=== PATIENT | male | born 1975 | race Two or more races ===

== ENCOUNTER 2019-11-26 12:05 | Emergency (ER) | payer SELFPAY ==
[~2019-11-26] VITALS: Ht 175.3 cm; Wt 91.0 kg
[2019-11-26] MEDS ORDERED: ONDANSETRON PF 4 MG/2 ML VIAL. IVP ONE (12:30)
[2019-11-26] MEDS ORDERED: IV NORMAL SALINE 1000ML BAG 1,000 ML IV ONE (12:30)
[2019-11-26] MEDS ORDERED: FAMOTIDINE 20 MG/2 ML VIAL IVP ONE (12:30)
[2019-11-26 12:32] LABS: BILIRUBIN,URINE SMALL (NEG); CLARITY,URINE CLOUDY; COLOR,URINE AMBER; NITRITE,URINE NEGATIVE (NEG); PH,URINE 5.5 (<5.0-8.0); PROTEIN,URINE 100 mg/dL (NEG-TRACE)
--- NOTE | 2019-11-26 12:37 | PHYS DOC ---
General Adult EDM: Chief Complaint: ABDOMINAL PAIN HPI: HPI: Patient is a 43 year old male who presents with patient states that this morning he began having left upper abdominal pain that is stabbing and takes his breath away. He states it makes him short of breath. He rates pain 10 out of 10. States he has nausea but denies vomiting or diarrhea or fever. He denies drinking alcohol. He states he is been taking Advil for pain. States about 6 days ago he had the same pain but it resolved quickly. Review of Systems: Review of Systems: GI: LUQ abdominal pain, nausea, denies vomiting, bloody stools or diarrhea. [] Heart Score: Risk Factors: Risk Factors: DM, Current or recent (<one month) smoker, HTN, HLP, family history of CAD, obesity. Risk Scores: Score 0 - 3: 2.5% MACE over next 6 weeks - Discharge Home Score 4 - 6: 20.3% MACE over next 6 weeks - Admit for Clinical Observation Score 7 - 10: 72.7% MACE over next 6 weeks - Early Invasive Strategies Current Medications: Current Medications Medications (Trade) Dose Ordered Sig/Nataliia Start Time Stop Time Status Last Admin Dose Admin Famotidine (Pepcid Vial) 20 mg 1X ONCE 11/26/19 12:30 11/26/19 12:31 UNV Ondansetron HCl (Zofran) 4 mg 1X ONCE 11/26/19 12:30 11/26/19 12:31 UNV Sodium Chloride 1,000 ml @ 1,000 mls/hr 1X ONCE 11/26/19 12:30 11/26/19 13:29 UNV Physical Exam: PE: Constitutional: Well developed, well nourished, no acute distress, non-toxic appearance. [] HENT: Normocephalic, atraumatic, bilateral external ears normal, oropharynx moist, no oral exudates, nose normal. [] Eyes: PERRLA, EOMI, conjunctiva normal, no discharge. [] Neck: Normal range of motion, no tenderness, supple, no stridor. [] Cardiovascular:Heart rate regular rhythm, no murmur [] Lungs & Thorax: Bilateral breath sounds clear to auscultation [] Abdomen: Bowel sounds normal, soft, LUQ tenderness, no masses, no pulsatile masses. [] Skin: Warm, dry, no erythema, no rash. [] Back: No tenderness, no CVA tenderness. [] Extremities: No tenderness, no cyanosis, no clubbing, ROM intact, no edema. [] Neurologic: Alert and oriented X 3, normal motor function, normal sensory fu nction, no focal deficits noted. [] Psychologic: Affect normal, judgement normal, mood normal. [] EKG: EK AND READ BY DR FULTON. SINUS RHYTHM AND NO STEMI[] Radiology/Procedures: Radiology/Procedures: [] Impression: [facility] [address] [place] [address] IMAGING REPORT Signed PATIENT: MARILU BOYER ACCOUNT: [id number] : 1975 LOCATION: ER AGE: 43 SEX: M EXAM STATUS: REG ER ORD. PHYSICIAN: ANNA KONG APRN REASON: soa PROCEDURE: PORTABLE CHEST 1V Single view chest dated 11/26/2019: No comparison available. Clinical Indication: Shortness of breath. Findings: Single upright portable exam of the chest was performed. Heart size and mediastinal contours are within normal limits. There is some mild patchy increased density at the medial right base. Lungs are otherwise clear. No consolidation or pleural effusion. No pneumothorax. Impression:: Patchy right basilar opacity, atelectasis versus early pneumonia. Electronically signed by: Anoop Márquez MD (11/26/2019 1:08 PM) [facility] [place]ATED and SIGNED BY: ANOPO MÁRQUEZ MD DATE: 11/26/19 1308 [facility] [address] [place] [address] IMAGING REPORT Signed PATIENT: MARILU BOYER ACCOUNT: [id number] : 1975 LOCATION: ER AGE: 43 SEX: M EXAM STATUS: REG ER ORD. PHYSICIAN: ANNA KONG APRN REASON: left upper pain, nausea PROCEDURE: CT ABD PELV W/ IV CONTRST ONLY CT SCAN OF THE ABDOMEN AND PELVIS WITH IV CONTRAST. History: Left upper quadrant pain Comparison:None. Procedure: Contiguous axial images of the abdomen and pelvis were performed after the administration of 75 cc of Omni 300 IV contrast. Oral contrast: No. Findings: Liver: Unremarkable Spleen: Unremarkable Pancreas: Unremarkable Adrenal Glands: Unremarkable Kidneys: There is a 1 cm stone in the distal left ureter with moderate left hydroureter and hydronephrosis and perinephric edema. The appendix is normal. There is no mass or lymphadenopathy. There is no free air. There is no free fluid. The urinary bladder is collapsed and not well evaluated. Impression: 1 cm stone distal left ureter with moderate left hydroureter and left hydronephrosis. End impression PQRS Compliance Statement: One or more of the following individualized dose reduction techniques were utilized for this examination: 1. Automated exposure control 2. Adjustment of the mA and/or kV according to patient size 3. Use of iterative reconstruction technique Electronically signed by: Angel Miller III, MD (11/26/2019 1:50 PM) [id number] DICTATED and SIGNED BY: ANGEL MILLER III, MD DATE: 11/26/19 8327 Course & Med Decision Making: Course & Med Decision Making Pertinent Labs and Imaging studies reviewed. (See chart for details) Alert and oriented. Abdomen is soft but tender left upper quadrant. He denies radiation of the pain. Lungs are clear to auscultation all lobes. He denies chest pain, constipation, diarrhea, headache, dizziness, fever, dysuria, flank pain, vision changes, weakness. No extremity edema. Skin pink warm and dry. Vital signs are within normal limits. Impression:: Patchy right basilar opacity, atelectasis versus early pneumonia. Impression: 1 cm stone distal left ureter with moderate left hydroureter and left hydronephrosis. Patient to be transferred to [facility] because they are keeping all Covid 19 patients at [facility] if at all possible. Patient is agreeable to this. I spoke with Dr Gil ED doctor at [facility] for admission. COVID-19 CRITERIA: The patient was evaluated during the global COVID-19 pandemic, and that diagnosis was suspected/considered upon their initial presentation. Their evaluation, treatment and testing was consistent with current guidelines for patients who present with complaints or symptoms that may be related to COVID-19. [] Dragon Disclaimer: Dragon Disclaimer: This electronic medical record was generated, in whole or in part, using a voice recognition dictation system. COVID-19 Patient Risks: Age 65 or older: No Sign of co-morbidity: Yes Exp to person + for COVID: No Exp to PUI: No Travel from affected area: No Lower respiratory symptoms: Yes Fever: No Other: No PPE Use: Full PPE with N95 mask or PAPR: Yes Departure Departure Impression: Primary Impression: Kidney stone on left side Additional Impression: Pneumonia Qualified Codes: J18.9 - Pneumonia, unspecified organism Disposition: 05 TRANSFER OTHER Condition: STABLE Referrals: NO PCP (PCP) ANNA KONG APRN Nov 26, 2019 12:37
[2019-11-26 12:39] LABS: BARBITURATES NEG (NEG); BENZODIAZEPINES NEG (NEG); CANNABINOIDS NEG (NEG); COCAINE NEG (NEG); METHADONE NEG (NEG); OPIATES NEG (NEG); PHENCYCLIDINE NEG (NEG)
[2019-11-26 12:44] LABS: AMPHETAMINE/METHAMPHETAMINE NEG (NEG)
[2019-11-26 12:45] LABS: BACTERIA,URINE FEW /HPF (0-FEW); RBC,URINE TNTC /HPF (0-2); SQUAMOUS EPITHELIAL CELL,UR FEW /LPF
[2019-11-26] MEDS ORDERED: fentaNYL PF VIAL 100 MCG/2 ML VIAL IVP ONE ×2 (12:45→14:45)
[2019-11-26 12:54] LABS: BASO # 0.1 x10^3/uL (0.0-0.2); BASO % 1 % (0-3); EOS # 0.1 x10^3/uL (0.0-0.7); EOS % 1 % (0-3); HEMATOCRIT 46.9 % (39.0-53.0); HEMOGLOBIN 15.7 g/dL (13.0-17.5); LYMPH # 1.6 x10^3/uL (1.0-4.8); LYMPH % 16 % (24-48); MEAN CORPUSCULAR HEMOGLOBIN 31 pg (25-35); MEAN CORPUSCULAR HGB CONC 34 g/dL (31-37); MEAN CORPUSCULAR VOLUME 93 fL (79-100); MONO # 0.7 x10^3/uL (0.0-1.1); MONO % 7 % (0-9); NEUT # 8.1 x10^3/uL (1.8-7.7); NEUT % 76 % (31-73); PLATELET COUNT 187 x10^3/uL (140-400); RED BLOOD COUNT 5.06 x10^6/uL (4.30-5.70); RED CELL DISTRIBUTION WIDTH 13.8 % (11.5-14.5); WHITE BLOOD COUNT 10.6 x10^3/uL (4.0-11.0)
[2019-11-26 13:02] LABS: CALCIUM 8.5 mg/dL (8.5-10.1); CREATININE 1.1 mg/dL (0.7-1.3); GFR 72.7; POTASSIUM 4.1 mmol/L (3.5-5.1)
[2019-11-26 13:03] LABS: PROTHROMBIN TIME PATIENT 13.9 SEC (11.7-14.0)
[2019-11-26 13:08] LABS: ALBUMIN 3.7 g/dL (3.4-5.0); ALBUMIN/GLOBULIN RATIO 0.9 (1.0-1.7); TOTAL BILIRUBIN 0.3 mg/dL (0.2-1.0); TOTAL PROTEIN 7.7 g/dL (6.4-8.2)
--- NOTE | 2019-11-26 13:11 | RAD ---
Single view chest dated 11/26/2019: No comparison available. Clinical Indication: Shortness of breath. Findings: Single upright portable exam of the chest was performed. Heart size and mediastinal contours are within normal limits. There is some mild patchy increased density at the medial right base. Lungs are otherwise clear. No consolidation or pleural effusion. No pneumothorax. Impression:: Patchy right basilar opacity, atelectasis versus early pneumonia. Electronically signed by: Anoop Márquez MD (11/26/2019 1:08 PM) [facility]
[2019-11-26] MEDS ORDERED: IOHEXOL 300 MG/ML 100ML VIAL. IV ONE (13:15)
[2019-11-26] MEDS ORDERED: AZITHRMYCN 500MG IVPB FOR OMNI 250 ML IV ONE (13:45)
[2019-11-26] MEDS ORDERED: cefTRIAXone IV Push 1 GM VIAL. IVP ONE (13:45)
--- NOTE | 2019-11-26 13:53 | RAD ---
CT SCAN OF THE ABDOMEN AND PELVIS WITH IV CONTRAST. History: Left upper quadrant pain Comparison:None. Procedure: Contiguous axial images of the abdomen and pelvis were performed after the administration of 75 cc of Omni 300 IV contrast. Oral contrast: No. Findings: Liver: Unremarkable Spleen: Unremarkable Pancreas: Unremarkable Adrenal Glands: Unremarkable Kidneys: There is a 1 cm stone in the distal left ureter with moderate left hydroureter and hydronephrosis and perinephric edema. The appendix is normal. There is no mass or lymphadenopathy. There is no free air. There is no free fluid. The urinary bladder is collapsed and not well evaluated. Impression: 1 cm stone distal left ureter with moderate left hydroureter and left hydronephrosis. End impression PQRS Compliance Statement: One or more of the following individualized dose reduction techniques were utilized for this examination: 1. Automated exposure control 2. Adjustment of the mA and/or kV according to patient size 3. Use of iterative reconstruction technique Electronically signed by: Tad Baldwin III, MD (11/26/2019 1:50 PM) [id number]
[2019-11-26] MEDS ORDERED: TAMS0.4C97 PO (14:05)
[2019-11-26] MEDS ORDERED: AZIT250T6 PO (14:05)
[2019-11-26] MEDS ORDERED: HYDR-3164 PO (14:07)
[2019-11-26] MEDS ORDERED: KETOROLAC 30 MG/ML VIAL. IVP ONE (14:45)
[2019-11-26 14:58] VITALS: BP 126/76
[2019-11-26] MEDS ORDERED: IOHEXOL 300 MG/ML 100ML VIAL. ONE (17:47)
--- NOTE | 2019-11-26 19:58 | EKG ---
[facility] [address] [place] [address] Test Date: 2019-11-26 Test Time: 12:45:50 Pat Name: MARILU BOYER Department: Room: Gender: M Director Of Sleep: : 1975 Requested By: ANNA KONG Order Number: [id number] Reading MD: Juan Pablo Diamond MD Measurements Intervals Lambert Rate: 62 P: 43 SC: 154 QRS: 23 QRSD: 86 T: 10 QT: 400 QTc: 408 Interpretive Statements SINUS RHYTHM Electronically Signed On 11-28-2019 13:24:13 CDT by Juan Pablo Diamond MD
== END 2019-11-26 15:30 | disposition short-term general hospital (02) ==
LOC: ER 12:05
DX: N13.2 Hydronephrosis with renal and ureteral calculous obstruction (principal); J18.9 Pneumonia, unspecified organism; R10.12 Left upper quadrant pain; R06.02 Shortness of breath; R11.0 Nausea; Z20.818 Contact with and (suspected) exposure to other bacterial communicable diseases
CPT/HCPCS: 36415; 71045; 74177; 80053; 80307; 81001; 83605; 83690; 85025; 85610; 87040; 87086; 93005; 96365; 96375; 96376; 99285; J0456; J0696; J1885; J2405; J3010; J3490; J7030; Q9967